=== PATIENT | female | born 1945 | race Caucasian/White ===

== ENCOUNTER 2017-12-20 15:13 | Emergency (ER) | payer MEDICARE ==
[~2017-12-20] VITALS: Ht 167.6 cm; Wt 103.0 kg
[2017-12-20 17:33] LABS: ANION GAP 16 (6-22 (CALC)); BUN 13 mg/dL (8-23); BUN/CREATININE RATIO 20 (12-20 (CALC)); CARBON DIOXIDE 23 mmol/l (22-30); CHLORIDE 110 mmol/l (95-108); CREATININE 0.7 mg/dL (0.5-1.0); GFR > 60 ML/MIN (>=60 (CALC)); GFR FOR AFR.AMER. > 60 ML/MIN (>=60 (CALC)); POTASSIUM 4.7 mmol/l (3.5-5.1); SODIUM 145 mmol/l (137-146)
[2017-12-20 18:40] VITALS: BP 136/71
== END 2017-12-20 18:40 | disposition home or self-care (01) ==
LOC: ED 15:13
PROVIDERS: Family Medicine
DX: H53.8 Other visual disturbances (principal)
CPT/HCPCS: Q9967

== ENCOUNTER 2023-02-13 15:42 | Emergency (ER) | payer MEDICARE ==
[~2023-02-13] VITALS: Ht 167.6 cm; Wt 97.5 kg
[2023-02-13] VITALS (7 sets, daily range): BP systolic 113–147; BP diastolic 51–82
[~2023-02-13 15:42] MED LIST: CEPHALEXIN500 MG PO
[2023-02-13 17:27] LABS: BASO% 0.3 % (0-3); EOS% 0.9 % (0-8); HEMATOCRIT 45.6 % (37.0-47.0); HEMOGLOBIN 14.6 g/dl (12.0-16.0); LYMPH% 29.1 % (15-41); MEAN CELL VOLUME 88.4 fL CALC (80.0-100.0); MEAN CORPUSCULAR HGB 28.3 pG CALC (26.0-32.0); MONO% 10.2 % (2-13); NEUT# 1.92 thou/uL (2.00-7.15); NEUT% 59.5 % (42-76); RED BLOOD COUNT 5.16 mill/uL (4.20-5.60); RED CELL DISTRI WIDTH 13.6 % (11.5-15.5)
[2023-02-13 17:41] LABS: ALBUMIN 4.1 g/dL (3.2-5.0); ALKALINE PHOSPHATASE 75 u/l (38-126); ANION GAP 10 (6-22 (CALC)); BILIRUBIN, TOTAL 0.8 mg/dL (0.02-1.3); BUN 14 mg/dL (8-23); BUN/CREATININE RATIO 20 (12-20 (CALC)); CARBON DIOXIDE 27 mmol/l (22-30); CHLORIDE 104 mmol/l (95-108); CREATININE 0.7 mg/dL (0.5-1.0); GFR FOR AFR.AMER. > 60 ML/MIN (>=60 (CALC)); GFR OTHER RACES > 60 ML/MIN (>=60 (CALC)); POTASSIUM 4.4 mmol/l (3.5-5.1); SGOT/AST 24 u/l (9-36); SODIUM 136 mmol/l (137-146); TOTAL PROTEIN 6.3 g/dL (6.3-8.2)
== END 2023-02-13 18:36 | disposition home or self-care (01) ==
LOC: ED 15:42
PROVIDERS: Family Medicine
DX: J11.1 Influenza due to unidentified influenza virus with other respiratory manifestations (principal); Z20.822 Contact with and (suspected) exposure to COVID-19

== ENCOUNTER 2024-09-22 13:55 | Emergency (ER) | payer MEDICARE ==
[~2024-09-22] VITALS: Ht 167.6 cm; Wt 92.5 kg
[2024-09-22 13:59] VITALS: BP 147/79
[2024-09-22] MEDS ORDERED: LIDOcaine HCl 1% (Local Anesth.) 20 ML VIAL STI STA (14:18)
[2024-09-22] MEDS ORDERED: POVIDONE IODINE 0.5 OZ/BTL TOP ONE (14:20)
[2024-09-22] MEDS ORDERED: Diph, Acellular Pertussis, Tet 0.5 ML/VIAL (Tdap) SDV IM ONE (14:20)
[2024-09-22 14:31] VITALS: BP 130/60
[2024-09-22 16:03] VITALS: BP 130/60
== END 2024-09-22 16:03 | disposition home or self-care (01) ==
LOC: ED 13:55
DX: S01.111A Laceration without foreign body of right eyelid and periocular area, initial encounter (principal); M25.511 Pain in right shoulder; M25.531 Pain in right wrist; W01.0XXA Fall on same level from slipping, tripping and stumbling without subsequent striking against object, initial encounter; Y92.007 Garden or yard of unspecified non-institutional (private) residence as the place of occurrence of the external cause